=== PATIENT | female | born 1960 | race Caucasian/White ===

== ENCOUNTER 2021-01-10 16:42 | Emergency (ER) | payer BC ==
[~2021-01-10] VITALS: Ht 167.6 cm; Wt 103.8 kg
--- NOTE | 2021-01-10 18:18 | PHYS DOC ---
Past History Past Medical History: Depression, Diabetes, GERD, Hypertension (DIANA CASSIDY APRN) Past Surgical History: Appendectomy, Hysterectomy, Other Additional Past Surgical Histo: GI (DIANA CASSIDY APRN) Alcohol Use: None (DIANA CASSIDY APRN) Adult General Chief Complaint Chief Complaint: ABDOMINAL PAIN [facility] HPI Patient is a 60 year old female patient who presents with worsening abdominal pain since 1200 today. STates she has a history of 6 prior small bowel obstructions, and had surgery to remove a lesion in her colon, which had resulted in a hernia as well. States she has discomfort today which feels like she is having another obstruction. Reports she has 4 bowel movements yesterday, reports they were normal, however today she just does not feel right. States she has had very little appetite, states she had felt a bit nauseous earlier. States no vomiting. States she does move passing gas, does feel like her abdome n is softer and more swollen and distended than usual. Denies fever. Denies additional complaints. (DIANA CASSIDY APRN) Review of Systems Review of Systems Constitutional: Denies fever or chills [] Eyes: Denies change in visual acuity, redness, or eye pain [] HENT: Denies nasal congestion or sore throat [] Respiratory: Denies cough or shortness of breath [] Cardiovascular: No additional information not addressed in HPI [] GI: Denies , vomiting, bloody stools or diarrhea [] reports has had abdominal pain, a cramping feeling. Reports some nausea intermittently : Denies dysuria or hematuria [] Musculoskeletal: Denies back pain or joint pain [] Integument: Denies rash or skin lesions [] Neurologic: Denies headache, focal weakness or sensory changes [] Endocrine: Denies polyuria or polydipsia [] All other systems were reviewed and found to be within normal limits, except as documented in this note. (DIANA CASSIDY APRN) Allergies Allergies Allergies Coded Allergies Type Severity Reaction Last Updated Verified Penicillins Allergy Unknown 01/10/21 Yes (DIANA CASSIDY APRN) Physical Exam Physical Exam Constitutional: Well developed, well nourished, no acute distress, non-toxic appearance. [] HENT: Normocephalic, atraumatic, bilateral external ears normal, oropharynx moist, no oral exudates, nose normal. [] Eyes: PERRLA, EOMI, conjunctiva normal, no discharge. [] Neck: Normal range of motion, no tenderness, supple, no stridor. [] Cardiovascular:Heart rate regular rhythm, no murmur [] Lungs & Thorax: Bilateral breath sounds clear to auscultation [] Abdomen: Bowel sounds diminished, soft, generalized upper abdominal tenderness, no masses, no pulsatile masses. [] Skin: Warm, dry, no erythema, no rash. [] Back: No tenderness, no CVA tenderness. [] Extremities: No tenderness, no cyanosis, no clubbing, ROM intact, no edema. [] Neurologic: Alert and oriented X 3, normal motor function, normal sensory f unction, no focal deficits noted. [] Psychologic: Affect normal, judgement normal, mood normal. [] (DIANA CASSIDY APRN) Current Patient Data Vital Signs Vital Signs Date Time Temp Pulse Resp B/P (MAP) Pulse Ox O2 Delivery O2 Flow Rate FiO2 01/10/21 17:45 98.0 111 16 144/76 (98) 95 Room Air (DIANA CASSIDY APRN) Lab Results Laboratory Tests Test 01/10/21 17:56 01/10/21 18:25 01/10/21 18:42 White Blood Count 10.5 x10^3/uL (4.0-11.0) Red Blood Count 5.23 x10^6/uL (3.50-5.40) Hemoglobin 14.3 g/dL (12.0-15.5) Hematocrit 43.5 % (36.0-47.0) Mean Corpuscular Volume 83 fL (79-100) Mean Corpuscular Hemoglobin 27 pg (25-35) Mean Corpuscular Hemoglobin Concent 33 g/dL (31-37) Red Cell Distribution Width 14.8 % (11.5-14.5) Platelet Count 299 x10^3/uL (140-400) Neutrophils (%) (Auto) 81 % (31-73) Lymphocytes (%) (Auto) 13 % (24-48) Monocytes (%) (Auto) 5 % (0-9) Eosinophils (%) (Auto) 1 % (0-3) Basophils (%) (Auto) 0 % (0-3) Neutrophils # (Auto) 8.6 x10^3uL (1.8-7.7) Lymphocytes # (Auto) 1.3 x10^3/uL (1.0-4.8) Monocytes # (Auto) 0.5 x10^3/uL (0.0-1.1) Eosinophils # (Auto) 0.1 x10^3/uL (0.0-0.7) Basophils # (Auto) 0.0 x10^3/uL (0.0-0.2) Sodium Level 135 mmol/L (136-145) Potassium Level 4.2 mmol/L (3.5-5.1) Chloride Level 97 mmol/L (98-107) Carbon Dioxide Level 28 mmol/L (21-32) Anion Gap 10 (6-14) Blood Urea Nitrogen 20 mg/dL (7-20) Creatinine 0.9 mg/dL (0.6-1.0) Estimated GFR (Cockcroft-Gault) 63.9 BUN/Creatinine Ratio 22 (6-20) Glucose Level 213 mg/dL (70-99) Calcium Level 9.5 mg/dL (8.5-10.1) Total Bilirubin 0.4 mg/dL (0.2-1.0) Aspartate Amino Transf (AST/SGOT) 25 U/L (15-37) Alanine Aminotransferase (ALT/SGPT) 51 U/L (14-59) Alkaline Phosphatase 87 U/L (46-116) Troponin I Quantitative < 0.017 ng/mL (0-0.055) Total Protein 7.9 g/dL (6.4-8.2) Albumin 4.0 g/dL (3.4-5.0) Albumin/Globulin Ratio 1.0 (1.0-1.7) Lipase 175 U/L (73-393) Lactic Acid Level 2.4 mmol/L (0.4-2.0) Urine Collection Type Unknown Urine Color Yellow Urine Clarity Hazy Urine pH 6.0 Urine Specific [place] 1.025 Urine Protein Neg (NEG-TRACE) Urine Glucose (UA) 250 mg/dL (NEG) Urine Ketones (Stick) Neg mg/dL (NEG) Urine Blood Large (NEG) Urine Nitrite Pos (NEG) Urine Bilirubin Neg (NEG) Urine Urobilinogen Dipstick 0.2 mg/dL (0.2 mg/dL) Urine Leukocyte Esterase Small (NEG) Urine RBC 6-10 /HPF (0-2) Urine WBC >40 /HPF (0-4) Urine Squamous Epithelial Cells Few /LPF Urine Bacteria Many /HPF (0-FEW) (CAESAR CERRATO MD) EKG EKG [] (DIANA CASSIDY APRN) Radiology/Procedures Radiology/Procedures REASON: abdominal pain, hx SBO Omni 300 75cc PROCEDURE: CT ABD PELV W/ IV CONTRST ONLY CT abdomen and pelvis with contrast: Reason for examination: Abdominal pain. History of small bowel obstruction. Helical images were obtained through the abdomen and pelvis with intravenous administration of 75 cc Omnipaque 300. Reconstruction was performed in sagittal and coronal planes. Exposure: One or more of the following individualized dose reduction techniques were utilized for this examination: 1. Automated exposure control 2. Adjustment of the mA and/or kV according to patient size 3. Use of iterative reconstruction technique. There is some linear density consistent with atelectasis at the left lung base. The heart size is normal with no pericardial effusion. The liver shows decreased density in segment 1 of the liver which shows some vascularity. This measures at least 6 cm in AP dimension, 6.4 cm transversely and extends craniocaudally 6 cm. The Hounsfield unit measurement however is consistent with focal fatty infiltration. There is also additional smaller lesion in the right lobe of liver probably representing focal fatty infiltration. There are additional small hypodense lesions in the right and left lobe of liver consistent with small foci of fatty infiltration, cysts and hemangioma. No abnormality seen at the spleen, adrenal glands or pancreas. There is a small splenule lung inferior to this lesion measuring 1.3 cm in size. There is cholelithiasis present. The abdominal aorta and inferior vena cava show no abnormalities. The colon shows a few scattered diverticuli without diverticulitis. There is a colonic anastomosis in the distal sigmoid colon. The small intestinal tract shows no abnormal dilatation or wall thickening. There is however herniation of a loop of small intestine in a supraumbilical location at midline. This does not appear incarcerated. The kidneys show no renal masses, renal calculi, hydronephrosis or obstructive uropathy. No abnormality seen at the bladder or vaginal cuff. No adnexal masses are seen. There is no free fluid or free air seen in the abdomen or pelvis. There are some degenerative changes in the visualized thoracic and lumbar spine. IMPRESSION: Linear atelectasis at the left lung base. 6 x 6.4 x 6 cm hypodense area in segment one of the liver with Hounsfield units less than 0 and consistent with focal fatty infiltration. Several additional small hypodense lesions in the right and left lobes of the liver consistent with foci of fatty infiltration, cysts and hemangioma. Cholelithiasis. Herniated loop of small bowel without incarceration in the supraumbilical position at the midline. Degenerative changes in the spine. Electronically signed by: Sarahi Acevedo MD (01/10/2021 8:09 PM) [facility] DICTATED AND SIGNED BY: SARAHI ACEVEDO MD DATE: 01/10/211941 CC: DIANA CASSIDY APRN; TEQUILA BLANCAS MD ~MTH0 0 [] (DIANA CASSIDY APRN) Heart Score Risk Factors: Risk Factors: DM, Current or recent (<one month) smoker, HTN, HLP, family history of CAD, obesity. Risk Scores: Risk Factors: DM, Current or recent (<one month) smoker, HTN, HLP, family history of CAD, obesity. (DIANA CASSIDY APRN) Course & Med Decision Making Course & Med Decision Making Pertinent Labs and Imaging studies reviewed. (See chart for details) []Reviewed imaging and labs with patient, patient reporting she doesn't have any symptoms of UTI but also notes she has poor sensation to her lower abdomen. States she is aware of her hernia issue and plans to have it addressed by her surgeon. Patient feels good about going home and will follow up with her PCP in the next few days. (DIANA CASSIDY APRN) Course & Med Decision Making Did not see or evaluate patient. Did not discuss patient with PA. Agree with work-up and disposition per note (CAESAR CERRATO MD) Dragon Disclaimer Dragon Disclaimer This electronic medical record was generated, in whole or in part, using a voice recognition dictation system. (DIANA CASSIDY APRN) Departure Departure: Impression: Primary Impression: Urinary tract infection Disposition: 01 DC HOME SELF CARE/HOMELESS Condition: STABLE Referrals: TEQUILA BLANCAS MD (PCP) Patient Instructions: Urinary Tract Infection Additional Instructions: As discussed, take the antibiotics as prescribed. Increase your fluid intake. Follow up with your primary care in the next couple days to make sure you are improving. Consult with your surgeon regarding fixing your hernia. Scripts Ciprofloxacin Hcl (CIPRO) 500 Mg Tablet 1 TAB PO BID for urinary tract infection for 7 Days, #14 TAB 0 Refills Prov: DIANA CASSIDY APRN 01/10/21 Problem Qualifiers Primary Impression: Urinary tract infection Urinary tract infection type: acute cystitis Hematuria presence: with hematuria Qualified Codes: N30.01 - Acute cystitis with hematuria DIANA CASSIDY APRN Jan 10, 2021 18:18 CAESAR CERRATO MD Jan 10, 2021 22:02
[2021-01-10] MEDS ORDERED: CONTRAST GIVEN. MC PRN (18:30)
[2021-01-10] MEDS ORDERED: IOHEXOL 300 MG/ML 75 ML VIAL. IV ONE (18:30)
[2021-01-10] MEDS ORDERED: ONDANSETRON PF 4 MG/2 ML VIAL. IVP ONE (18:30)
[2021-01-10] MEDS: MORPHINE SULFATE 2 MG/ML DISP.SYRIN. IV PRN ×2 (18:40→20:17)
[2021-01-10 18:56] LABS: BASO % 0 % (0-3); EOS # 0.1 x10^3/uL (0.0-0.7); EOS % 1 % (0-3); HEMATOCRIT 43.5 % (36.0-47.0); HEMOGLOBIN 14.3 g/dL (12.0-15.5); LYMPH # 1.3 x10^3/uL (1.0-4.8); LYMPH % 13 % (24-48); MEAN CORPUSCULAR HEMOGLOBIN 27 pg (25-35); MEAN CORPUSCULAR HGB CONC 33 g/dL (31-37); MEAN CORPUSCULAR VOLUME 83 fL (79-100); MONO # 0.5 x10^3/uL (0.0-1.1); MONO % 5 % (0-9); NEUT # 8.6 x10^3uL (1.8-7.7); NEUT % 81 % (31-73); PLATELET COUNT 299 x10^3/uL (140-400); RED BLOOD COUNT 5.23 x10^6/uL (3.50-5.40); RED CELL DISTRIBUTION WIDTH 14.8 % (11.5-14.5); WHITE BLOOD COUNT 10.5 x10^3/uL (4.0-11.0)
[2021-01-10 19:09] LABS: CALCIUM 9.5 mg/dL (8.5-10.1); CREATININE 0.9 mg/dL (0.6-1.0); GFR 63.9; POTASSIUM 4.2 mmol/L (3.5-5.1)
[2021-01-10 19:23] LABS: TOTAL BILIRUBIN 0.4 mg/dL (0.2-1.0); TOTAL PROTEIN 7.9 g/dL (6.4-8.2)
[2021-01-10] MEDS ORDERED: IV NORMAL SALINE 1,000ML 1,000 ML IV ONE (19:30)
[2021-01-10 19:34] LABS: BILIRUBIN,URINE NEG (NEG); CLARITY,URINE HAZY; COLOR,URINE YELLOW; GLUCOSE,URINE 250 mg/dL (NEG); NITRITE,URINE POS (NEG); UROBILINOGEN,URINE 0.2 mg/dL (0.2 mg/dL)
[2021-01-10 19:35] LABS: BACTERIA,URINE MANY /HPF (0-FEW); SQUAMOUS EPITHELIAL CELL,UR FEW /LPF; WBC,URINE >40 /HPF (0-4)
--- NOTE | 2021-01-10 20:11 | RAD ---
CT abdomen and pelvis with contrast: Reason for examination: Abdominal pain. History of small bowel obstruction. Helical images were obtained through the abdomen and pelvis with intravenous administration of 75 cc Omnipaque 300. Reconstruction was performed in sagittal and coronal planes. Exposure: One or more of the following individualized dose reduction techniques were utilized for thi s examination: 1. Automated exposure control 2. Adjustment of the mA and/or kV according to patient size 3. Use of iterative reconstruction technique. There is some linear density consistent with atelectasis at the left lung base. The heart size is nor mal with no pericardial effusion. The liver shows decreased density in segment 1 of the liver which shows some vascularity. This measur es at least 6 cm in AP dimension, 6.4 cm transversely and extends craniocaudally 6 cm. The Hounsfield unit measurement however is consistent with focal fatty infiltration. There is also additional small er lesion in the right lobe of liver probably representing focal fatty infiltration. There are additi onal small hypodense lesions in the right and left lobe of liver consistent with small foci of fatty infiltration, cysts and hemangioma. No abnormality seen at the spleen, adrenal glands or pancreas. Th ere is a small splenule lung inferior to this lesion measuring 1.3 cm in size. There is cholelithiasi s present. The abdominal aorta and inferior vena cava show no abnormalities. The colon shows a few sc attered diverticuli without diverticulitis. There is a colonic anastomosis in the distal sigmoid colo n. The small intestinal tract shows no abnormal dilatation or wall thickening. There is however herni ation of a loop of small intestine in a supraumbilical location at midline. This does not appear inca rcerated. The kidneys show no renal masses, renal calculi, hydronephrosis or obstructive uropathy. No abnormality seen at the bladder or vaginal cuff. No adnexal masses are seen. There is no free flui d or free air seen in the abdomen or pelvis. There are some degenerative changes in the visualized th oracic and lumbar spine. IMPRESSION: Linear atelectasis at the left lung base. 6 x 6.4 x 6 cm hypodense area in segment one of the liver with Hounsfield units less than 0 and consi stent with focal fatty infiltration. Several additional small hypodense lesions in the right and left lobes of the liver consistent with f oci of fatty infiltration, cysts and hemangioma. Cholelithiasis. Herniated loop of small bowel without incarceration in the supraumbilical position at the midline. Degenerative changes in the spine. Electronically signed by: Sarahi Rich MD (01/10/2021 8:09 PM) [facility]
[2021-01-10 20:17] VITALS: BP 120/67
[2021-01-10] MEDS ORDERED: CIPR500T94 PO (20:49)
[2021-01-10] MEDS ORDERED: CIPROFLOXACIN HCL 500 MG TABLET PO ONE (21:30)
== END 2021-01-10 21:10 | disposition home or self-care (01) ==
LOC: ER 16:42
DX: N30.01 Acute cystitis with hematuria (principal); E11.9 Type 2 diabetes mellitus without complications; K21.9 Gastro-esophageal reflux disease without esophagitis; I10 Essential (primary) hypertension; F32.9 Major depressive disorder, single episode, unspecified; Z90.89 Acquired absence of other organs; Z90.710 Acquired absence of both cervix and uterus; Z88.0 Allergy status to penicillin
CPT/HCPCS: 36415; 74177; 80053; 81001; 83605; 83690; 84484; 85025; 87077; 87086; 87186; 96361; 96374; 96375; 96376; 99285; J2270; J2405; J7030; Q9967